=== PATIENT | female | born 1960 | race Caucasian/White ===

== ENCOUNTER → 2018-01-03 | Outpatient (CLI) | payer BC ==
[~2018-01-03] MED LIST: ACIDOPHILUS PO; CALCIUM 600 PLU1 TAB PO; KLONOPIN 1MG1 MG PO; NORCO 325 MG-7.1 TAB PO; PRINIVIL10 MG PO; PRINZIDE 12.5 M1 TAB PO; VITAMIN C500 MG PO; ZINC NATURAL50 MG PO; [UNRECOGNIZED DRUG - OTHER] PO
== END ==
LOC: MC.RAD 10:14
DX: Z12.31 Encounter for screening mammogram for malignant neoplasm of breast (principal)

== ENCOUNTER → 2020-03-17 | Outpatient (CLI) | payer BC | LOC: MC.RAD 01-21 15:45 | DX: Z12.31 Encounter for screening mammogram for malignant neoplasm of breast (principal) ==

== ENCOUNTER → 2022-06-08 | Outpatient (CLI) | payer BC | LOC: MC.RAD 09:15 | DX: Z12.31 Encounter for screening mammogram for malignant neoplasm of breast (principal) ==

== ENCOUNTER 2023-01-18 19:53 | Emergency (ER) | payer OTHER ==
[~2023-01-18] VITALS: Ht 167.6 cm; Wt 72.7 kg
[2023-01-18 19:59] VITALS: BP 159/99; PULSE 82; TEMP 97.6
[2023-01-18] MEDS ORDERED: AMOXICILLIN 8751 TAB PO (20:29)
== END 2023-01-18 20:41 | disposition home or self-care (01) ==
LOC: COL.ER 19:53
DX: S01.511A Laceration without foreign body of lip, initial encounter (principal); W55.03XA Scratched by cat, initial encounter

== ENCOUNTER → 2024-07-30 | Outpatient (CLI) | payer MEDICARE, OTHER ==
[~2024-07-30] MED LIST changes: +AMOXICILLIN 8751 TAB PO; +APETIGEN SL; +ASPI325T6 PO; +CELEBREX 200MG200 MG PO; +MAG-OX 400400 MG/TAB PO; +ROXICODONE 55 MG/TAB PO; +TYLENOL 500MG500 MG PO; +ULTRAM 50MG TAB50 MG PO; +VITAMIN B12 SL
== END ==
LOC: MC.RAD 10:04
DX: Z12.31 Encounter for screening mammogram for malignant neoplasm of breast (principal)